=== PATIENT | male | born 1955 | race Caucasian/White ===

== ENCOUNTER → 2022-03-09 | Outpatient (CLI) | payer OTHER ==
[2022-03-09 12:35] LABS: BASOPHILS % (AUTO) 0.8 % (0.0-5.0); EOSINOPHILS % (AUTO) 2.4 % (0.0-8.0); HEMATOCRIT 40.1 % (42-54); LYMPHOCYTES % (AUTO) 41.4 % (21.0-51.0); MEAN CORPUSCULAR HEMOGLOBIN 28.5 pg (27.0-33.0); MEAN CORPUSCULAR HGB CONC 32.4 g/dL (32.0-36.0); MEAN CORPUSCULAR VOLUME 87.9 fL (79-99); MONOCYTES % (AUTO) 7.5 % (3.0-13.0); NEUTROPHILS % (AUTO) 47.7 % (40.0-77.0); PLATELET COUNT (AUTO) 227 K/uL (130-400); RED BLOOD CELL COUNT(AUTO) 4.56 MIL/uL (4.50-6.20); RED CELL DISTRIBUTION WIDTH 15.1 % (11.0-15.5); WHITE BLOOD COUNT (AUTO) 6.6 K/uL (4.8-10.8)
[2022-03-09 12:55] LABS: BILIRUBIN,DIRECT 0.2 mg/dL (0.0-0.3); CREATININE 1.1 mg/dL (0.5-1.5); POTASSIUM 3.6 mmol/L (3.5-5.1); THYROID STIMULATING HORMONE 2.16 uIU/mL (0.36-3.74); TOTAL PROTEIN, SERUM 8.1 g/dL (6.0-8.3); URIC ACID 7.7 mg/dL (2.6-7.2)
== END | disposition home or self-care (01) ==
LOC: LAB 10:34
PROVIDERS: ATTEND Internal Medicine
DX: I10 Essential (primary) hypertension (principal); R53.81 Other malaise; Z79.899 Other long term (current) drug therapy
CPT/HCPCS: 80053; 80061; 80076; 82043; 84153; 84443; 84550; 85025

== ENCOUNTER → 2022-10-07 | Outpatient (CLI) | payer OTHER | END | disposition home or self-care (01) | LOC: SHCH 07:44 | PROVIDERS: ATTEND Internal Medicine Cardiovascular Disease | DX: I35.1 Nonrheumatic aortic (valve) insufficiency (principal); I48.19 Other persistent atrial fibrillation | CPT/HCPCS: 93306 ==

== ENCOUNTER → 2022-10-13 | Outpatient (CLI) | payer OTHER | END | disposition home or self-care (01) | LOC: OIH 08:12 | PROVIDERS: ATTEND Internal Medicine Cardiovascular Disease | DX: Z13.6 Encounter for screening for cardiovascular disorders (principal) | CPT/HCPCS: 75571 ==

== ENCOUNTER 2022-12-02 07:31 | Day surgery (SDC) | payer OTHER ==
[2022-12-01 12:23] LABS: BASOPHILS % (AUTO) 0.4 % (0.0-5.0); EOSINOPHILS % (AUTO) 2.2 % (0.0-8.0); HEMATOCRIT 37.2 % (42-54); LYMPHOCYTES % (AUTO) 32.3 % (21.0-51.0); MEAN CORPUSCULAR HEMOGLOBIN 31.8 pg (27.0-33.0); MEAN CORPUSCULAR HGB CONC 33.3 g/dL (32.0-36.0); MEAN CORPUSCULAR VOLUME 95.4 fL (79-99); PLATELET COUNT (AUTO) 213 K/uL (130-400); RED CELL DISTRIBUTION WIDTH 13.2 % (11.0-15.5); WHITE BLOOD COUNT (AUTO) 6.8 K/uL (4.8-10.8)
[2022-12-01 12:44] LABS: INR 1.22 (0.85-1.15)
[2022-12-01 12:45] LABS: PARTIAL THROMBOPLASTIN TIME 30.5 SEC (26.3-35.5)
[2022-12-01 12:53] LABS: CREATININE 0.9 mg/dL (0.5-1.5); POTASSIUM 3.5 mmol/L (3.5-5.1)
[2022-12-01 13:27] VITALS: BP 163/86
[2022-12-02] VITALS (14 sets, daily range): BP systolic 128–175; BP diastolic 85–111
[~2022-12-02] VITALS: Ht 177.8 cm; Wt 82.2 kg
[~2022-12-02 07:31] MED LIST: APIX5TAB PO; ATOR20TA PO; LOSA100T59 PO; METO-409 PO
[2022-12-02] MEDS ORDERED: LIDOCAINE HCL 2% VISCOUS 15 ML UDCUP ONE (07:57)
[2022-12-02] MEDS ORDERED: FENTANYL CITRATE PF 50 MCG/1 ML 2ML VIAL ONE (07:57)
[2022-12-02] MEDS ORDERED: MIDAZOLAM HCL 1 MG/ML 2ML VIAL ONE (07:57)
[2022-12-02] MEDS ORDERED: NALOXONE HCL 0.4 MG/1 ML ML ONE (07:58)
[2022-12-02] MEDS ORDERED: 0.9%NACL 1000ML 1,000 ML IV ONE (07:58)
[2022-12-02] MEDS ORDERED: FLUMAZENIL 0.1MG/1ML 5ML VIAL IV ONE (07:58)
== END 2022-12-02 11:20 | disposition home or self-care (01) ==
LOC: DAH 07:31 → EDSTATUS 12-07 09:00
PROVIDERS: ATTEND Internal Medicine Cardiovascular Disease
DX: I48.19 Other persistent atrial fibrillation (principal); I08.0 Rheumatic disorders of both mitral and aortic valves; I25.10 Atherosclerotic heart disease of native coronary artery without angina pectoris; I10 Essential (primary) hypertension; G47.33 Obstructive sleep apnea (adult) (pediatric); Z88.1 Allergy status to other antibiotic agents; Z88.2 Allergy status to sulfonamides; Z79.01 Long term (current) use of anticoagulants; Z79.899 Other long term (current) drug therapy; Z72.89 Other problems related to lifestyle; Z98.890 Other specified postprocedural states
CPT/HCPCS: 80048; 85025; 85610; 85730; 36415; 93005; 93312; J3010; J7030; J2250; A4215; A4222; A4221; A4663; A4216; A4606; A4223 ×3; J2310; J3490

== ENCOUNTER 2022-12-05 07:10 | Day surgery (SDC) | payer OTHER ==
[2022-12-01 15:11] VITALS: BP 163/86
[~2022-12-05] VITALS: Ht 177.8 cm; Wt 82.2 kg
[2022-12-05] VITALS (9 sets, daily range): BP systolic 98–143; BP diastolic 58–71
[2022-12-05] MEDS ORDERED: DRON400T7 PO (08:02)
[2022-12-05] MEDS ORDERED: 0.9%NACL 1000ML 1,000 ML IV ONE (08:15)
[2022-12-05] MEDS ORDERED: LIDOCAINE HCL MPF 1% 5ML VIAL ONE (09:13)
[2022-12-05] MEDS ORDERED: LIDOCAINE PF 100MG/5ML (2%) SYRINGE 5ML ONE (09:13)
[2022-12-05] MEDS ORDERED: PROPOFOL 10 MG/ML 20ML VIAL IV ONE (09:13)
[2022-12-05] MEDS ORDERED: NEOSTIGMINE 5MG/5ML SYR IV ONE (09:36)
== END 2022-12-05 10:30 | disposition home or self-care (01) ==
LOC: DAH 07:10
PROVIDERS: ATTEND Internal Medicine Cardiovascular Disease
DX: I48.19 Other persistent atrial fibrillation (principal); I10 Essential (primary) hypertension; Z88.1 Allergy status to other antibiotic agents; Z88.2 Allergy status to sulfonamides; Z79.01 Long term (current) use of anticoagulants; Z20.822 Contact with and (suspected) exposure to COVID-19; Z79.899 Other long term (current) drug therapy; Z72.89 Other problems related to lifestyle; Z98.890 Other specified postprocedural states
CPT/HCPCS: 87426; 92960; 93005 ×2; A4223 ×3; J7030; J2001; J2704; A4215; A4222; A4221; A4663; A4216; A4606; 99152; J2710; J3490

== ENCOUNTER 2024-03-18 07:30 | Day surgery (SDC) | payer OTHER ==
[2024-03-14 12:21] LABS: BASOPHILS # (AUTO) 0.04 K/uL (0.00-0.20); BASOPHILS % (AUTO) 0.6 % (0.0-5.0); EOSINOPHILS # (AUTO) 0.25 K/uL (0.00-0.70); EOSINOPHILS % (AUTO) 3.9 % (0.0-8.0); HEMATOCRIT 36.5 % (42-54); IMMATURE GRANULOCYTE ABSOLUTE 0.01 K/uL (0-1); LYMPHOCYTES # (AUTO) 2.3 K/uL (1.0-4.8); LYMPHOCYTES % (AUTO) 36.1 % (21.0-51.0); MEAN CORPUSCULAR HEMOGLOBIN 29.9 pg (27.0-33.0); MEAN CORPUSCULAR HGB CONC 32.3 g/dL (32.0-36.0); MEAN CORPUSCULAR VOLUME 92.6 fL (79-99); MONOCYTES # (AUTO) 0.7 K/uL (0.1-1.0); MONOCYTES % (AUTO) 10.4 % (3.0-13.0); NEUTROPHILS # (AUTO) 3.2 K/uL (1.8-7.7); NEUTROPHILS % (AUTO) 48.8 % (40.0-77.0); PLATELET COUNT (AUTO) 228 K/uL (130-400); RED BLOOD CELL COUNT(AUTO) 3.94 MIL/uL (4.50-6.20); RED CELL DISTRIBUTION WIDTH 12.4 % (11.0-15.5); WHITE BLOOD COUNT (AUTO) 6.5 K/uL (4.8-10.8)
[2024-03-14 12:25] LABS: CREATININE 1.3 mg/dL (0.5-1.3); POTASSIUM 3.5 mmol/L (3.5-5.1)
[2024-03-14 12:35] VITALS: BP 130/64; PULSE 80; RESP 18; TEMP 98.1
[2024-03-14 12:39] LABS: INR 1.27 (0.85-1.15); PROTHROMBIN TIME 13.5 SEC (9.6-11.6)
[2024-03-14 12:40] LABS: PARTIAL THROMBOPLASTIN TIME 29.6 SEC (26.3-35.5)
[2024-03-18] VITALS (24 sets, daily range): BP systolic 95–137; BP diastolic 53–86; PULSE 62–92; RESP 16–18; TEMP 97.3–98.1
[~2024-03-18] VITALS: Ht 177.8 cm; Wt 82.6 kg
[~2024-03-18 07:30] MED LIST changes: -ATOR20TA PO; +DRON400T7 PO; -LOSA100T59 PO; +LOSA1TAB54 PO
[2024-03-18] MEDS: LIDOCAINE HCL 2% VISCOUS 15 ML UDCUP PO PRN (09:11)
[2024-03-18] MEDS: 0.9%NACL 1000ML 1,000 ML IV SCH (09:11)
[2024-03-18] MEDS: proPOFol 1000 MG/100 ML IV PRN (09:12)
[2024-03-18] MEDS: FENTanyl CITRate PF 50 MCG/1 ML 2ML VIAL IVP ONE (09:14)
[2024-03-18] MEDS: MIDAZOLAM HCL 1 MG/ML 2ML VIAL IVP ONE ×2 (09:14→09:17)
[2024-03-18] MEDS: proPOFol 1000 MG/100 ML 100 ML IV ONE (09:15)
[2024-03-18] MEDS: PoTASSium chloRIDE 10MEQ/100ML 100 ML IV ONE (09:55)
[2024-03-18] MEDS ORDERED: HEParin-NS 1,000 UNIT/500 ML 500 ML IV ONE (09:59)
[2024-03-18] MEDS ORDERED: ceFAZolin SODIUM 1 GM VIAL ONE (09:59)
[2024-03-18] MEDS ORDERED: PAPAVERINE HCL 30 MG/ML 2ML VIAL ONE (10:00)
[2024-03-18] MEDS: MAGNESIUM 2GM PREMIX 50ML 50 ML IV SCH (10:48)
[2024-03-18] MEDS: MAGNESIUM 2GM PREMIX 50ML 50 ML IV ONE (10:49)
[2024-03-18] MEDS: fluMAZenil 0.1MG/1ML 5ML VIAL IV SCH (10:50)
== END 2024-03-18 12:06 | disposition home or self-care (01) ==
LOC: DAH 07:30 → EDSTATUS 11:00 → DAH 12:06
PROVIDERS: ATTEND Internal Medicine Cardiovascular Disease
DX: I49.3 Ventricular premature depolarization (principal); I08.3 Combined rheumatic disorders of mitral, aortic and tricuspid valves; I48.19 Other persistent atrial fibrillation; I10 Essential (primary) hypertension; G47.33 Obstructive sleep apnea (adult) (pediatric); E78.5 Hyperlipidemia, unspecified; Z88.1 Allergy status to other antibiotic agents; Z79.01 Long term (current) use of anticoagulants; Z79.899 Other long term (current) drug therapy
CPT/HCPCS: 80048; 85025; 85610; 85730; 36415; 92960; 93325; 93312; 93005 ×2; J3475; J3010; J0690; J7030; J2250 ×2; J2704; J1644; J2440; J3480; A4615; A4215; A4223 ×3; A7002; A4222; A4221; A4663; A4216; A4606; 96360; 99152; 99153; J3490; G0500